=== PATIENT | male | born 1965 | race Caucasian/White ===

== ENCOUNTER → 2022-08-12 | Outpatient (CLI) | payer MEDICARE, MEDICAID, SELFPAY ==
--- NOTE | 2022-08-12 16:45 | MRI_ITS ---
STUDY: MRI LUMBAR SPINE WITHOUT CONTRAST REASON FOR EXAM: Male, 56 years old. SPINAL STENOSIS TECHNIQUE: Standardized fat and water weighted pulse sequences were obtained in the sagittal and axial planes. COMPARISON: None FINDINGS: T12-L1: Narrowed disc space with minor endplate spurring and disc degeneration with minimal annular bulge.. Normal bilateral facet joints. Normal central canal and bilateral lateral recesses. Normal bilateral intervertebral neural foramina. Normal lumbar lordosis. There is no substantial scoliosis. Normal conus medullaris that terminates at T12 L1-2: Narrowed disc space with disc degeneration and mild annular bulge.. Normal bilateral facet joints. Normal central canal and bilateral lateral recesses. Normal bilateral intervertebral neural foramina. L2-3: Normal endplates. Normal disc height, desiccation and normal morphology. Normal bilateral facet joints. Normal central canal and bilateral lateral recesses. Normal bilateral intervertebral neural foramina. L3-4: Normal endplates. Normal disc height, desiccation and mild annular bulge. Mild facet arthropathy.. Normal central canal and bilateral lateral recesses. Moderate bilateral neural foraminal stenosis secondary to disc and bony hypertrophy. L4-5: Normal endplates. Normal disc height, desiccation and minor annular bulge. Bilateral facet arthropathy.. Normal central canal and bilateral lateral recesses. Mild bilateral neural foraminal encroachment L5-S1: Normal endplates. Normal disc height, hydration and minor annular bulge.. Mild facet arthropathy.. Normal central canal and bilateral lateral recesses. Normal bilateral intervertebral neural foramina. Normal visualized sacral ala. Normal visualized paraspinous soft tissue structures. MRI/Spine Lumbar (Routine) IMPRESSION: No evidence for acute fracture or other significant bony pathology. Spondylosis and multilevel disc degeneration. Bilateral neural foraminal stenosis at L4-5 and slightly more pronounced at L3-4 secondary to bulging annuli and facet arthropathy Other findings as above Electronically Signed: Mike Welch MD at 19:10 EDT ,
== END | disposition home or self-care (01) ==
PROVIDERS: Referring Provider Orthopaedic Surgery; Visit Provider Orthopaedic Surgery
DX: M48.061 Spinal stenosis, lumbar region without neurogenic claudication (principal); M47.816 Spondylosis without myelopathy or radiculopathy, lumbar region; M51.36 Other intervertebral disc degeneration, lumbar region
CPT/HCPCS: 72148

== ENCOUNTER → 2022-10-20 | Outpatient (CLI) | payer MEDICARE, MEDICAID, SELFPAY ==
--- NOTE | 2022-10-20 17:18 | RAD_ITS ---
EXAM: XR THORACIC SPINE, 3 VIEWS CLINICAL INDICATION: PAIN TECHNIQUE: Frontal, lateral and swimmer''s views of the thoracic spine. COMPARISON: No relevant prior studies available. FINDINGS: VERTEBRAE: Mild anterior spondylosis at the thoracolumbar junction. The usual kyphotic curvature of the thoracic spine appears minimally straightened. Preserved vertebral body height. No fracture. No significant facet arthropathy. DISC SPACES: Degenerative changes at C5-6 and C6-7 with anterior and posterior osteophytes and moderate C5-6 disc space narrowing. LUNGS AND PLEURAL SPACES: No effusions or significant infiltrate at the posterior lung bases. Unremarkable medial lungs, mediastinum and almost completely included heart size on the frontal view. OTHER FINDINGS: Technique: 3 views. RAD/Thoracic Spine 3 Views IMPRESSION: Degenerative changes, especially at the lower cervical spine and thoracolumbar junction. No obviously acute findings in the thoracic spine. Electronically Signed: Shannon Blackwell MD at 9:11 EDT ,
== END | disposition home or self-care (01) ==
LOC: RAD 17:13
PROVIDERS: Referring Provider Anesthesiology Pain Medicine; Visit Provider Anesthesiology Pain Medicine
DX: M51.34 Other intervertebral disc degeneration, thoracic region (principal)
CPT/HCPCS: 72072